=== PATIENT | female | born 1945 | race Caucasian/White ===

== ENCOUNTER → 2017-04-24 | Outpatient (CLI) | payer OTHER | LOC: CIMAGING 07:23 | PROVIDERS: ATTEND Family Medicine | DX: Z12.31 Encounter for screening mammogram for malignant neoplasm of breast (principal) | CPT/HCPCS: G0202 ==

== ENCOUNTER → 2017-12-04 | Outpatient (CLI) | payer OTHER | LOC: FIMAGING 09:08 | PROVIDERS: ATTEND Family Medicine | DX: Z13.820 Encounter for screening for osteoporosis (principal); M81.0 Age-related osteoporosis without current pathological fracture; Z78.0 Asymptomatic menopausal state ==

== ENCOUNTER → 2017-12-15 | Outpatient (CLI) | payer OTHER | LOC: CIMAGING 08:38 | PROVIDERS: ATTEND Family Medicine | DX: R06.02 Shortness of breath (principal); J98.4 Other disorders of lung | CPT/HCPCS: 71046-PO ==

== ENCOUNTER → 2018-01-05 | Outpatient (CLI) | payer OTHER | LOC: BRMIMAGING 14:18 | PROVIDERS: ATTEND Internal Medicine | DX: M54.6 Pain in thoracic spine (principal); M81.0 Age-related osteoporosis without current pathological fracture | CPT/HCPCS: 72070-PO ==